=== PATIENT | female | born 1990 | race Caucasian/White ===

== ENCOUNTER 2019-07-10 08:16 | Emergency (ER) | payer BC ==
--- NOTE | 2019-07-10 08:41 | EDM.PDOC ---
ED HPI GENERAL MEDICAL PROBLEM - General Chief Complaint: Gastrointestinal Problem Stated Complaint: PER PT DEHYDRATION,6 WEEKS Time Seen by Provider: 07/10/19 08:38 Source of Information: Reports: Patient History Limitations: Reports: No Limitations - History of Present Illness INITIAL COMMENTS - FREE TEXT/NARRATIVE: 28-year-old female who is 2 para 0 AB 1 and is approximately 7 weeks by needed to recent ultrasound who presents complaining of nausea and inability to take liquids for the past one week or so. She had some pelvic cramping about a week and half ago and was seen by Dr. Recinos, her OB doctor, and had an ultrasound performed which showed an intrauterine and some small amount of hemorrhage but no heartbeat time. She has had no vomiting but just nausea and is unable to take liquids because of this nausea. She reports that her urine output has been decreased and she feels somewhat weak and dizzy when she stands. She has had no dysuria or hematuria. She does feel achy all over and reports that that pain is about a 7/10. She has had some nasal congestion, sore throat and cough is been going on for about the past 2 weeks and that seems to be going away. No shortness of breath. No vaginal bleeding. She has been trying vitamin B6 with no relief. She has taken no other medications. There are no other associated signs or symptoms. There are no other modifying factors. 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 Approximately 7 weeks by early ultrasound), Spontaneous (X 1) Psychiatric History: Reports: Anxiety, Depression - Past Surgical History GI Surgical History: Reports: Appendectomy Social & Family History - Tobacco Use Smoking Status *Q: Current Every Day Smoker - Caffeine Use Caffeine Use: Reports: Coffee - Alcohol Use Alcohol Use History: No - Living Situation & Occupation Living situation: Reports: Social History Comment: She is here with her ED ROS GENERAL - Review of Systems Review Of Systems: See Below Constitutional: Reports: Malaise, Weakness, Fatigue HEENT: Reports: Other (Somewhat dry mouth. Recent sore throat. Some nasal congestion.) Respiratory: Reports: Cough (Mild and appears to be going away.). Denies: Shortness of Breath Cardiovascular: Reports: No Symptoms Endocrine: Reports: No Symptoms GI/Abdominal: Reports: Nausea. Denies: Diarrhea : Reports: No Symptoms Musculoskeletal: Reports: Other (Some diffuse body aches) Skin: Reports: No Symptoms Neurological: Reports: Dizziness Hematologic/Lymphatic: Reports: No Symptoms Immunologic: Reports: No Symptoms ED EXAM, GENERAL - Physical Exam Exam: See Below Exam Limited By: No Limitations General Appearance: Alert, WD/WN, No Apparent Distress Eye Exam: Bilateral Eye: EOMI, Normal Inspection, PERRL Ears: Normal External Exam, Hearing Grossly Normal Ear Exam: Bilateral Ear: Auricle Normal Nose: Normal Inspection, Normal Mucosa, No Blood Throat/Mouth: Normal Voice, No Airway Compromise, Other (No posterior erythema.) Head: Atraumatic, Normocephalic Neck: Normal Inspection, Supple, Non-Tender, Full Range of Motion Respiratory/Chest: No Respiratory Distress, Lungs Clear, Normal Breath Sounds, No Accessory Muscle Use, Chest Non-Tender Cardiovascular: Normal Peripheral Pulses, Regular Rate, Rhythm, No Edema, No Murmur Peripheral Pulses: 2+: Radial (L), Radial (R) GI/Abdominal: Normal Bowel Sounds, Soft, Non-Tender, No Mass Back Exam: Normal Inspection, Full Range of Motion Extremities: Normal Inspection, Normal Range of Motion, Non-Tender, No Pedal Edema, Normal Capillary Refill Neurological: Alert, Oriented, CN II-XII Intact, Normal Cognition, No Motor/ Sensory Deficits Psychiatric: Normal Affect Skin Exam: Warm, Dry, Intact, Normal Color, No Rash Course - Orders/Labs/Meds Orders: Active Orders 24 hr Category Date Time Status CULTURE URINE [RM] Stat Lab 07/10/19 10:30 Ordered Sodium Chloride 0.9% [Saline Flush] Med 07/10/19 08:54 Active 10 ml FLUSH ASDIRECTED PRN Peripheral IV Insertion Adult [OM.PC] Routine Oth 07/10/19 08:54 Ordered Medication Orders Sodium Chloride (Saline Flush) 10 ml FLUSH ASDIRECTED PRN PRN Reason: Keep Vein Open Last Admin: 07/10/19 09:05 Dose: 10 ml Labs: Laboratory Tests 07/10/19 07/10/19 07/10/19 Range/Units 09:04 09:04 09:24 WBC 8.1 (4.5-12.0) X10-3/uL RBC 4.28 (3.23-5.20) x10(6)uL Hgb 13.2 (11.5-15.5) g/dL Hct 38.0 (30.0-51.3) % MCV 88.9 (80-96) fL MCH 30.7 (27.7-33.6) pg MCHC 34.6 (32.2-35.4) g/dL RDW 12.1 (11.5-15.5) % Plt Count 284 (125-369) X10(3)uL MPV 7.8 (7.4-10.4) fL Neut % (Auto) 76.8 (46-82) % Lymph % (Auto) 17.2 (13-37) % [place] % (Auto) 5.1 (4-12) % Eos % (Auto) 1 (1.0-5.0) % Baso % (Auto) 0 (0-2) % Neut # (Auto) 6.3 (1.6-8.3) # Lymph # (Auto) 1.4 (0.6-5.0) # [place] # (Auto) 0.4 (0.0-1.3) # Eos # (Auto) 0.0 (0.0-0.8) # Baso # (Auto) 0.0 (0.0-0.2) # Sodium 139 (135-145) mmol/L Potassium 3.9 (3.5-5.3) mmol/L Chloride 103 (100-110) mmol/L Carbon Dioxide 24 (21-32) mmol/L BUN 9 (7-18) mg/dL Creatinine 0.7 (0.55-1.02) mg/dL Est Cr Clr Drug Dosing TNP Estimated GFR (MDRD) > 60 (>60) BUN/Creatinine Ratio 12.9 (9-20) Glucose 83 (80-116) mg/dL Calcium 8.5 L (8.6-10.2) mg/dL Magnesium 1.6 L (1.8-2.5) mg/dL Total Bilirubin 0.4 (0.1-1.3) mg/dL AST 20 (5-25) IU/L ALT 53 H (12-36) U/L Alkaline Phosphatase 52 L (56-112) IU/L Total Protein 7.2 (6.0-8.0) g/dL Albumin 3.5 (3.5-5.2) g/dL Globulin 3.7 g/dL Albumin/Globulin Ratio 1.0 Urine Color Yellow (YELLOW) Urine Appearance Cloudy (CLEAR) Urine pH 5.0 (5.0-6.5) Ur Specific [place] 1.030 H (1.010-1.025) Urine Protein Trace (NEGATIVE) mg/dL Urine Glucose (UA) Normal (NORMAL) mg/dL Urine Ketones 150 H (NEGATIVE) mg/dL Urine Occult Blood Moderate H (NEGATIVE) Urine Nitrite Negative (NEGATIVE) Urine Bilirubin Small H (NEGATIVE) Urine Urobilinogen Normal (NEGATIVE) mg/dL Ur Leukocyte Esterase Negative (NEGATIVE) Urine RBC 10-20 H (0-5) Urine WBC 0-5 (0-5) Ur Squamous Epith Cells Many H (NS,R,O) Urine Bacteria Many H (NS) Meds: Medications Generic Name Dose Route Start Last Admin Trade Name Freq PRN Reason Stop Dose Admin Sodium Chloride 10 ml 07/10/19 08:54 07/10/19 09:05 Saline Flush FLUSH 10 ml ASDIRECTED PRN Administration Keep Vein Open Discontinued Medications Generic Name Dose Route Start Last Admin Trade Name Freq PRN Reason Stop Dose Admin Promethazine HCl 25 mg/ Sodium 51 mls @ 200 mls/hr 07/10/19 08:56 07/10/19 09 :15 Chloride IV 07/10/19 09:11 200 mls/hr ONETIME ONE Administration Sodium Chloride 1,000 mls @ 999 mls/hr 07/10/19 08:55 07/10/19 09:15 Normal Saline IV 07/10/19 09:55 999 mls/hr .BOLUS ONE Administration Magnesium Sulfate 2 gm/ Premix 50 mls @ 150 mls/hr 07/10/19 09:35 07/10/19 09 :51 IV 07/10/19 09:54 150 mls/hr ONETIME ONE Administration - Re-Assessments/Exams Free Text/Narrative Re-Assessment/Exam: 07/10/19 10:25: Patient's blood tests are reassuringly normal. Her urine test is concentrated and has some red blood cells and some bacteria. I did send this for culture. She has received the Phenergan and about half of her IV fluids. She has also received almost all of her magnesium. She feels somewhat improved. Her nausea is reduced and she has had no vomiting. The plan will be to discharge the patient with a prescription for Phenergan to be used for nausea. She will also be told to continue taking the pyridoxine 3-4 times daily while she is having the nausea. She will need to follow-up with Dr. Recinos this coming week for recheck. Departure - Departure Time of Disposition: 11:10 Disposition: Home, Self-Care 01 Condition: Good Clinical Impression: First trimester , Dehydration, moderate, Nausea and vomiting during - Discharge Information Prescriptions: Promethazine [Phenergan] 25 mg PO Q6H PRN #20 tab PRN Reason: Nausea and vomiting Instructions: First Trimester of , [id number], Nausea and Vomiting, Adult, [id number], Dehydration, Adult, [id number] Referrals: Maria Del Carmen Mead PA-C [Primary Care Provider] - Forms: ED Department Discharge Additional Instructions: Your blood tests were reassuringly normal. Your urine was concentrated. You were dehydrated. You will need to drink small amounts of fluids frequently and ever continued to increase your fluid intake. You should also eat small amounts frequently and try light foods. Get plenty of rest. Follow-up with Dr. Recinos this coming week. Back to the emergency department for uncontrolled vomiting, high fever, vaginal bleeding, abdominal pain or any other concerning sign or symptom. Sepsis Event Note - Focused Exam Date Exam was Performed: 07/10/19 Time Exam was Performed: 11:09 - My Orders Last 24 Hours: My Active Orders 07/10/19 08:54 Sodium Chloride 0.9% [Saline Flush] 10 ml FLUSH ASDIRECTED PRN Peripheral IV Insertion Adult [OM.PC] Routine 07/10/19 10:30 CULTURE URINE [RM] Stat - Assessment/Plan Last 24 Hours: My Active Orders 07/10/19 08:54 Sodium Chloride 0.9% [Saline Flush] 10 ml FLUSH ASDIRECTED PRN Peripheral IV Insertion Adult [OM.PC] Routine 07/10/19 10:30 CULTURE URINE [RM] Stat
[2019-07-10] MEDS ORDERED: Sodium Chloride 0.9% 10 ML Syringe FLUSH PRN (08:54)
[2019-07-10] MEDS ORDERED: Sodium Chloride 0.9% 1,000 ML IV ONE (08:55)
[2019-07-10] MEDS ORDERED: Promethazine 25 MG in Sodium Chloride 0.9% 50 ML IV ONE (08:56)
[2019-07-10] MEDS ORDERED: Magnesium Sulfate/Water 2 GM in Premix Bag 1 BAG IV ONE (09:35)
== END 2019-07-10 11:20 | disposition home or self-care (01) ==
LOC: FB.ED 08:16
DX: O21.1 Hyperemesis gravidarum with metabolic disturbance (principal); O99.331 Smoking (tobacco) complicating pregnancy, first trimester; F17.210 Nicotine dependence, cigarettes, uncomplicated; Z3A.01 Less than 8 weeks gestation of pregnancy
CPT/HCPCS: 36415; 80053; 81001; 83735; 85025; 87086; 96361; 96365; 96375; 99284-25; J2550; J3475; J7030; J7050

== ENCOUNTER 2023-05-24 20:41 | Emergency (ER) | payer BC ==
[2023-05-24 21:20] LABS: BASOPHILS PERCENT AUTO 0.4 % (0.2-1.5); EOSINOPHILS PERCENT AUTO 0.7 % (0.6-8.1); HEMATOCRIT 36.9 % (34.2-48.2); HEMOGLOBIN 12.6 g/dL (11.4-15.5); LYMPHOCYTES ABSOLUTE AUTO 0.7 x10-3/uL (1.0-4.4); LYMPHOCYTES PERCENT AUTO 11.8 % (18.4-52.1); MEAN CORPUSCULAR HEMOGLOBIN 30.4 pg (23.9-33.9); MEAN CORPUSCULAR HGB CONC 34.2 g/dL (31.9-34.8); MEAN CORPUSCULAR VOLUME 89.1 fL (76.7-100.5); MONOCYTES ABSOLUTE AUTO 0.5 x10-3/uL (0.3-1.0); MONOCYTES PERCENT AUTO 8.8 % (4.4-15.7); NEUTROPHILS ABSOLUTE AUTO 4.7 x10-3/uL (1.5-6.3); NEUTROPHILS PERCENT AUTO 78.3 % (30.8-76.2); PLATELET COUNT,PLT 231 x10(3)uL (151-488); RED BLOOD CELL COUNT 4.15 x10(6)uL (3.60-5.20); RED CELL DISTRIBUTION WIDTH 13.2 % (12.3-16.5)
== END 2023-05-24 21:40 | disposition home or self-care (01) ==
LOC: FB.ED 20:41
DX: J03.90 Acute tonsillitis, unspecified (principal); Z88.8 Allergy status to other drugs, medicaments and biological substances; Z90.49 Acquired absence of other specified parts of digestive tract
CPT/HCPCS: 36415; 85025; 86308; 87651-QW; 99283